=== PATIENT | male | born 1955 | race Hispanic/Latino ===

== ENCOUNTER 2024-08-08 16:13 | Inpatient (IN) | payer MEDICARE, OTHER ==
[~2024-08-08] VITALS: Ht 188 cm; Wt 103.6 kg
[~2024-08-08 16:13] MED LIST: FERROUS SULFAT325 M1 PO; PANTOPRAZOLE SO40 MG PO
[2024-08-08 17:28] LABS: BASOPHILS % 0.2 % (0.0-1.0); EOSINOPHILS # (AUTO) 0.2 (0.0-0.4); EOSINOPHILS % 2.3 % (0.0-6.0); HEMATOCRIT 44.8 % (38.2-49.6); LYMPHOCYTES % 15.6 % (18.0-39.1); MEAN CORPUSCULAR HEMOGLOBIN 30.4 pg (28-32); MEAN CORPUSCULAR HGB CONC 33.5 g/dL (31-35); MEAN CORPUSCULAR VOLUME 90.9 fL (81-99); MONOCYTES # (AUTO) 0.6 (0.2-0.8); MONOCYTES % 9.5 % (4.4-11.3); NEUTROPHILS # (AUTO) 4.7 (2.1-6.9); NEUTROPHILS % 71.9 % (38.7-80.0); PLATELET COUNT 181 x10e3/uL (140-360); RED BLOOD COUNT 4.93 x10e6/uL (4.3-5.7); RED CELL DISTRIBUTION WIDTH 11.9 % (11.7-14.4); WHITE BLOOD COUNT 6.52 x10e3/uL (4.8-10.8)
[2024-08-08 17:35] LABS: INR 1.01; PARTIAL THROMBOPLASTIN TIME 28.2 seconds (23.8-35.5); PROTHROMBIN TIME 13.9 seconds (11.9-14.5)
[2024-08-08 17:41] LABS: ALBUMIN 4.1 g/dL (3.5-5.0); ALBUMIN/GLOBULIN RATIO 1.5 (0.8-2.0); ANION GAP 15.8 mmol/L (8-16); BILIRUBIN,TOTAL 0.7 mg/dL (0.2-1.2); CALCIUM 9.1 mg/dL (8.4-10.2); CREATININE, SERUM 0.97 mg/dL (0.72-1.25); MAGNESIUM 2.1 MG/DL (1.3-2.1); POTASSIUM 3.8 mmol/L (3.5-5.1); TOTAL PROTEIN 6.9 g/dL (6.5-8.1)
[2024-08-08 17:47] LABS: TROPONIN I 0.039 ng/mL (0-0.300)
[2024-08-08] MEDS: Morphine 4mg INJECTION 4 MG/ML INJ IV STA (17:51)
[2024-08-08] MEDS: ONDANSETRON HCL INJ 2MG/ML 2ML 2 MG/ML VIAL IV STA (17:51)
[2024-08-08] MEDS: SODIUM CHLORIDE 0.9% 1000ML 1,000 ML IV SCH (17:53)
[2024-08-08 19:21] VITALS: PULSE 67; RESP 16; TEMP 98.2
[2024-08-08 20:00] VITALS: BP 130/81; PULSE 68; RESP 18; TEMP 97.4; O2SAT 100
[2024-08-08 21:30] VITALS: BP 130/81; PULSE 68; RESP 18; TEMP 97.4; O2SAT 100
[2024-08-09] VITALS (9 sets, daily range): BP systolic 110–129; BP diastolic 60–79; PULSE 60–71; RESP 16–19; TEMP 97.7–99; O2SAT 96–100
[2024-08-09] MEDS: Morphine 4mg INJECTION 4 MG/ML INJ IV PRN (00:32)
[2024-08-09] MEDS: ONDANSETRON HCL INJ 2MG/ML 2ML 2 MG/ML VIAL IV PRN (09:33)
[2024-08-09] MEDS ORDERED: DEXAMETHASONE 10MG/ML PF INJ ONE (10:27)
[2024-08-09] MEDS ORDERED: ROPIVACAINE 0.5% 5 MG/ML 30 ML SDV ONE (10:27)
[2024-08-09] MEDS ORDERED: EPINEPHRINE HCL 1:1000 1ML 1 MG/ML AMP ONE (10:27)
[2024-08-09] MEDS ORDERED: MIDAZOLAM HCL 2 MG/2 ML VIAL ONE (10:27)
[2024-08-09] MEDS ORDERED: PROPOFOL IV EMULSION 10 MG/ML 20 ML VIAL ONE (10:34)
[2024-08-09] MEDS ORDERED: ACETAMINOPHEN 1000 MG/100 ML 100 ML IV ONE (10:34)
[2024-08-09] MEDS ORDERED: LIDOCAINE HCL 2% LOCAL INJ 5 ML SDV VIAL INJ ONE (10:34)
[2024-08-09] MEDS ORDERED: SEVOFLURANE INHAL SOLN 250 ML PEN BTL ONE (10:34)
[2024-08-09] MEDS ORDERED: ROCURONIUM BROMIDE 1 ML IV ONE ×2 (10:34→14:44)
[2024-08-09] MEDS ORDERED: FENTANYL CITRATE/PF 100MCG/2 ML INJ ONE ×2 (10:34→16:08)
[2024-08-09] MEDS ORDERED: METOPROLOL TARTRATE INJ 1 MG/ML VIAL IV PRN (10:45)
[2024-08-09] MEDS ORDERED: SIMETHICONE 80 MG CHEW PO PRN (10:45)
[2024-08-09] MEDS ORDERED: MELATONIN 3 MG TAB PO PRN (10:45)
[2024-08-09] MEDS ORDERED: ACETAMINOPHEN 325 MG TAB PO PRN (10:45)
[2024-08-09] MEDS ORDERED: ONDANSETRON HCL INJ 2MG/ML 2ML 2 MG/ML VIAL ONE (14:30)
[2024-08-09] MEDS ORDERED: DEXAMETHASONE SOD PHOS INJ 4 MG/ML SDV ONE (14:30)
[2024-08-09] MEDS: CALCIUM CARBONATE/VITAMIN D3 500 MG TAB PO SCH (15:00)
[2024-08-09] MEDS: ROPIVACAINE/EPI/CLONIDINE/KET 50 ML SYRINGE INJ ONE (15:04)
[2024-08-09] MEDS ORDERED: LACTATED RINGER'S 1,000 ML ONE (15:58)
[2024-08-09] MEDS ORDERED: SUGAMMADEX SODIUM 200 MG/2 ML VIAL IV ONE (16:15)
[2024-08-09] MEDS: FERROUS SULFATE 325 MG TAB PO SCH (16:24)
[2024-08-09] MEDS ORDERED: HYDROCODONE/APAP 5MG-325MG TAB PO PRN (17:00)
[2024-08-09] MEDS ORDERED: ONDANSETRON HCL INJ 2MG/ML 2ML 2 MG/ML VIAL IV PRN (17:00)
[2024-08-09] MEDS: HYDROCODONE/APAP 7.5MG-325MG 1 EA TAB PO ONE (17:00)
[2024-08-09] MEDS ORDERED: KETOROLAC TROMETHAMINE 30 MG/ML VIAL IV PRN (17:00)
[2024-08-09] MEDS: CELECOXIB 200 MG CAP PO SCH (17:41)
[2024-08-09] MEDS: CEFAZOLIN SODIUM 2 GM in SODIUM CHLORIDE 0.9% 100 ML IV SCH (21:48)
[2024-08-10] VITALS (10 sets, daily range): BP systolic 101–112; BP diastolic 58–78; PULSE 61–70; RESP 16–20; TEMP 98–98.6; O2SAT 95–100
[2024-08-10] MEDS: ASPIRIN 81 MG CHEW TAB PO SCH (00:47)
[2024-08-10 06:10] LABS: HEMATOCRIT 38.1 % (38.2-49.6); HEMOGLOBIN 12.8 g/dL (14.0-18.0); LYMPHOCYTES # (AUTO) 0.6 (1.0-3.2); LYMPHOCYTES % 7.2 % (18.0-39.1); MEAN CORPUSCULAR HEMOGLOBIN 30.3 pg (28-32); MEAN CORPUSCULAR HGB CONC 33.6 g/dL (31-35); MEAN CORPUSCULAR VOLUME 90.1 fL (81-99); MONOCYTES # (AUTO) 0.5 (0.2-0.8); MONOCYTES % 6.1 % (4.4-11.3); NEUTROPHILS # (AUTO) 7.1 (2.1-6.9); NEUTROPHILS % 86.3 % (38.7-80.0); PLATELET COUNT 164 x10e3/uL (140-360); RED BLOOD COUNT 4.23 x10e6/uL (4.3-5.7); RED CELL DISTRIBUTION WIDTH 11.6 % (11.7-14.4); WHITE BLOOD COUNT 8.25 x10e3/uL (4.8-10.8)
[2024-08-10 06:29] LABS: ANION GAP 15.4 mmol/L (8-16); CREATININE, SERUM 0.82 mg/dL (0.72-1.25); POTASSIUM 4.4 mmol/L (3.5-5.1)
[2024-08-10] MEDS: SENNOSIDES 8.6 MG TAB PO SCH (09:00)
[2024-08-10] MEDS: PANTOPRAZOLE SOD 40 MG TABEC PO SCH (09:12)
[2024-08-10] MEDS: HYDROCODONE/APAP 7.5MG-325MG 1 EA TAB PO PRN (11:32)
[2024-08-10] MEDS: DOCUSATE SODIUM 100 MG CAP PO PRN (14:26)
[2024-08-10] MEDS ORDERED: ACETAMINOPHEN 1000 MG/100 ML IV PRN (17:00)
[2024-08-11 04:00] VITALS: BP 113/76; PULSE 71; RESP 18; TEMP 98.5; O2SAT 99
[2024-08-11 05:07] LABS: BASOPHILS % 0.2 % (0.0-1.0); EOSINOPHILS # (AUTO) 0.1 (0.0-0.4); EOSINOPHILS % 0.9 % (0.0-6.0); HEMATOCRIT 34.2 % (38.2-49.6); HEMOGLOBIN 11.4 g/dL (14.0-18.0); LYMPHOCYTES # (AUTO) 1.4 (1.0-3.2); LYMPHOCYTES % 23.5 % (18.0-39.1); MEAN CORPUSCULAR HGB CONC 33.3 g/dL (31-35); MONOCYTES # (AUTO) 0.8 (0.2-0.8); MONOCYTES % 13.8 % (4.4-11.3); NEUTROPHILS # (AUTO) 3.6 (2.1-6.9); NEUTROPHILS % 61.3 % (38.7-80.0); PLATELET COUNT 129 x10e3/uL (140-360); RED CELL DISTRIBUTION WIDTH 11.9 % (11.7-14.4); WHITE BLOOD COUNT 5.86 x10e3/uL (4.8-10.8)
[2024-08-11 05:41] LABS: ANION GAP 11.8 mmol/L (8-16); CALCIUM 8.4 mg/dL (8.4-10.2); CREATININE, SERUM 0.76 mg/dL (0.72-1.25); POTASSIUM 3.8 mmol/L (3.5-5.1)
[2024-08-11] MEDS ORDERED: SENOKOT8.6 MG PO (06:16)
[2024-08-11] MEDS ORDERED: HYDROCODON-ACE1 EA11 PO (06:16)
[2024-08-11] MEDS ORDERED: ACETAMINOPHEN325 M1 PO (06:16)
[2024-08-11] MEDS ORDERED: ASPIRIN CHEW81 MG PO (06:16)
[2024-08-11] MEDS ORDERED: Docusate Sodium PO (06:16)
[2024-08-11 07:45] VITALS: PULSE 72; RESP 18; O2SAT 98
[2024-08-11 08:50] VITALS: BP 118/68; PULSE 66; RESP 20; TEMP 98.4; O2SAT 98
[2024-08-11 09:01] VITALS: BP 118/68; PULSE 66; RESP 20; TEMP 98.4; O2SAT 98
== END 2024-08-11 11:38 | disposition home health service (06) | DRG 522 ==
LOC: ER 16:36 → ERHOLD 17:53 → MED/SURG 19:53
PROVIDERS: ADMIT Internal Medicine; ATTEND Internal Medicine
PROC: 0SR90JA Replacement of Right Hip Joint with Synthetic Substitute, Uncemented, Open Approach (ICD-10-PCS; principal; 2024-08-09 14:22)
DX: S72.011A Unspecified intracapsular fracture of right femur, initial encounter for closed fracture (principal); K21.9 Gastro-esophageal reflux disease without esophagitis; W00.0XXA Fall on same level due to ice and snow, initial encounter; Z86.0100 Personal history of colon polyps, unspecified; Z88.0 Allergy status to penicillin; F17.210 Nicotine dependence, cigarettes, uncomplicated
CPT/HCPCS: 36415; 71045; 72170; 80048; 80053; 83735; 84484; 85025; 85610; 85730; 86850; 86900; 93005; 94799; 99252; 99284; C1713; C1776; J0171; J0690; J1100; J2003; J2250; J2270; J2405; J2795; J7030; J7050